=== PATIENT | female | born 1955 | race Caucasian/White ===

== ENCOUNTER 2018-01-02 10:17 | Inpatient (IN) | payer BC ==
[~2018-01-02] VITALS: Ht 162.6 cm; Wt 116.7 kg
[~2018-01-02 10:17] MED LIST: AFRIN3 ML; BENADRYL; FEMARA2.5 MG; SINGULAIR10 MG; SORIATANE25 MG
[2018-01-02 10:44] LABS: HEMOGLOBIN 13.8 G/DL (11.9-15.5); MCH 30.7 PG (29.0-34.0); MCHC 32.1 G/DL (30.0-36.0); MCV 95.8 FL (83-99); PLATELET COUNT 331 K/uL (156-360); RBC DIS.WIDTH-CV 12.8 % (11.8-14.6); RBC DIS.WIDTH-SD 44.8 % (39-53); RED BLOOD COUNT 4.49 M/uL (3.80-5.20)
[2018-01-02 10:50] LABS: ALBUMIN 3.5 g/dL (3.2-4.8)
[2018-01-02 10:51] LABS: CHLORIDE 104 mEq/L (99-109); POTASSIUM 4.1 mEq/L (3.7-5.4); SODIUM 142 mEq/L (136-147)
[2018-01-02 10:53] LABS: GLUCOSE 123 mg/dL (70-99); TOTAL PROTEIN 7.1 g/dL (6.4-8.3)
[2018-01-02 10:55] LABS: TOTAL BILIRUBIN 0.9 mg/dL (0.0-1.0)
[2018-01-02 10:56] LABS: ALKALINE PHOSPHATASE 67 IU/L (3-129)
[2018-01-02 10:57] LABS: CREATININE 0.8 mg/dL (0.6-1.3); GFR ESTIMATE (CALCULATED) > 59 mL/min/
[2018-01-02 10:58] LABS: AST (GOT) 14 IU/L (2-34); UREA NITROGEN (BUN) 5 mg/dL (9-23)
[2018-01-02 10:59] LABS: ALT (GPT) 18 IU/L (3-49)
[2018-01-02 11:30] LABS: LIPASE 24 U/L (1.0-51.0)
[2018-01-02 12:45] LABS: C DIFF TOXIN NEGATIVE (NEGATIVE)
[2018-01-02 12:50] LABS: APPEARANCE CLEAR ((CLEAR)); BILIRUBIN NEGATIVE; BLOOD NEGATIVE; COLOR YELLOW ((YELLOW)); GLUCOSE (STRIP) NEGATIVE; KETONES NEGATIVE; LEUKOCYTES NEGATIVE; NITRITE NEGATIVE; PROTEIN (STRIP) NEGATIVE; SPECIFIC GRAVITY 1.012 (1.000-1.030); UCUL ADDED? NO; UROBILINOGEN 0.2 MG/DL (0.2-1.0)
[2018-01-02 13:24] LABS: TROP-I INTERPRETATION NEGATIVE; TROPONIN-I < 0.01 ng/mL (0.0-0.30)
[2018-01-02] MEDS ORDERED: LUTEIN10 MG PO (16:08)
[2018-01-02] MEDS ORDERED: ZOFRAN ODT8 MG PO (16:09)
[2018-01-02] MEDS ORDERED: MACROBID100 MG PO (16:09)
[2018-01-02] MEDS ORDERED: RANITIDINE HCL150 MG PO (16:09)
[2018-01-02] MEDS ORDERED: DIPROSONE 0.05%15 GM TP (16:10)
[2018-01-02] MEDS ORDERED: BIOTIN10000 MC1 PO (16:10)
[2018-01-02] MEDS ORDERED: OTEZLA30 MG PO (16:10)
[2018-01-02] MEDS ORDERED: ELIDEL 1% CREAM30 GM TP (16:11)
[2018-01-02 18:09] VITALS: BP 141/79
[2018-01-02 20:00] VITALS: BP 138/80
[2018-01-03] VITALS: BP 132/76
[2018-01-03 05:10] LABS: HEMATOCRIT 36.4 % (36.0-46.0); MCH 29.8 PG (29.0-34.0); MCHC 31.3 G/DL (30.0-36.0); MCV 95.3 FL (83-99); PLATELET COUNT 270 K/uL (156-360); RBC DIS.WIDTH-CV 12.9 % (11.8-14.6); RBC DIS.WIDTH-SD 44.9 % (39-53); RED BLOOD COUNT 3.82 M/uL (3.80-5.20); WHITE BLOOD COUNT 10.5 K/uL (4.1-10.2)
[2018-01-03 05:12] LABS: HEMOGLOBIN 11.4 G/DL (11.9-15.5)
[2018-01-03 05:47] LABS: CHLORIDE 106 MEQ/L (99-109); CREATININE 0.6 MG/DL (0.6-1.3); GFR ESTIMATE (CALCULATED) > 59 mL/min/; GLUCOSE 110 mg/dL (70-99); SODIUM 140 MEQ/L (136-147); UREA NITROGEN (BUN) 5 mg/dL (9-23)
[2018-01-03 16:06] VITALS: BP 124/74
[2018-01-03 19:06] VITALS: BP 122/82
[2018-01-04 00:27] VITALS: BP 102/74
[2018-01-04 04:02] VITALS: BP 112/68
[2018-01-04 07:05] LABS: BASOPHIL (%) 0.4 % (0-1); EOSINOPHIL (%) 4.9 % (0-5); EOSINOPHIL COUNT 0.5 K/uL (0-0.3); HEMATOCRIT 40.2 % (36.0-46.0); HEMOGLOBIN 12.7 G/DL (11.9-15.5); IMMATURE GRANULOCYTE (%) 0.6 % (0.0-0.7); LYMPHOCYTE (%) 25.6 % (15-42); LYMPHOCYTE COUNT 2.4 K/uL (1.0-2.8); MCH 30.3 PG (29.0-34.0); MCHC 31.6 G/DL (30.0-36.0); MCV 95.9 FL (83-99); MONOCYTE (%) 8.9 % (3-12); MONOCYTE COUNT 0.8 K/uL (0-0.8); NEUTROPHIL (%) 59.6 % (45-76); NEUTROPHIL COUNT 5.5 K/uL (1.8-6.4); PLATELET COUNT 333 K/uL (156-360); RBC DIS.WIDTH-CV 12.8 % (11.8-14.6); RBC DIS.WIDTH-SD 45.1 % (39-53); RED BLOOD COUNT 4.19 M/uL (3.80-5.20); WHITE BLOOD COUNT 9.3 K/uL (4.1-10.2)
[2018-01-04 07:18] VITALS: BP 118/68
[2018-01-04 08:17] LABS: CHLORIDE 107 MEQ/L (99-109); CREATININE 0.6 MG/DL (0.6-1.3); GFR ESTIMATE (CALCULATED) > 59 mL/min/; GLUCOSE 94 mg/dL (70-99); POTASSIUM 4.2 MEQ/L (3.7-5.4); SODIUM 144 MEQ/L (136-147); UREA NITROGEN (BUN) 4 mg/dL (9-23); VANCOMYCIN, TROUGH 15.8 MCG/ML (10-20)
[2018-01-04 19:49] VITALS: BP 100/60
[2018-01-05 00:35] VITALS: BP 120/76
[2018-01-05 04:59] VITALS: BP 120/80
[2018-01-05 07:54] VITALS: BP 125/80
[2018-01-05] MEDS ORDERED: SUCRALFATE1 GM PO (10:54)
[2018-01-05] MEDS ORDERED: PANTOPRAZOLE SO40 MG PO (10:54)
== END 2018-01-05 11:59 | disposition home or self-care (01) | DRG 392 ==
LOC: EME 10:17 → EDOF 15:55 → CANRESERV 15:56 → EDOF 16:41 → 4SOUTH 16:41 → ENPENDDIS 01-05 → 4SOUTH 01-05 11:59
PROVIDERS: Hospitalist; Internal Medicine; Nurse Practitioner Family
PROC: 0DB68ZX Excision of Stomach, Via Natural or Artificial Opening Endoscopic, Diagnostic (ICD-10-PCS; principal; 2018-01-04)
DX: K29.60 Other gastritis without bleeding (principal); R50.9 Fever, unspecified; R79.1 Abnormal coagulation profile; K21.9 Gastro-esophageal reflux disease without esophagitis; K44.9 Diaphragmatic hernia without obstruction or gangrene; L40.9 Psoriasis, unspecified; E66.9 Obesity, unspecified; Z68.41 Body mass index [BMI] 40.0-44.9, adult; Z85.3 Personal history of malignant neoplasm of breast; Z86.711 Personal history of pulmonary embolism; Z92.21 Personal history of antineoplastic chemotherapy; Z92.3 Personal history of irradiation; Z88.0 Allergy status to penicillin; Z88.1 Allergy status to other antibiotic agents; Z88.2 Allergy status to sulfonamides
CPT/HCPCS: 70450; 71275; 74177; 76705; 80048; 80053; 80202; 81003; 83605; 83690; 84145 90; 84484; 85025; 85027; 85379; 87040; 87493; 87506; 87641; 88305; 88342 TC; 93005; 93970; 93975; 99281; 99285; C9113; J2250; J2405; J2765; J3370; J7030; S0073